=== PATIENT | male | born 1965 | race Caucasian/White ===

== ENCOUNTER 2019-03-20 20:32 | Emergency (ER) | payer BC ==
[2019-03-20 20:41] VITALS: BP 127/79
--- NOTE | 2019-03-20 20:57 | UC ---
Hand/Wrist HPI - HPI Summary HPI Summary: 53 yo male presents with LEFT arm injury. He tells me that this evening he was on a stool fixing an appliance, when he slipped and landed on his distal left upper arm. Did not hit his head or have LOC. Since that time he has had pain to the area, but has improved with ice and gentle ROM. He is right handed. He notes some decreased sensation along the C7 dermatome from elbow to mid forearm. - History Of Current Complaint Chief Complaint: UCUpperExtremity Stated Complaint: ARM INJURY Time Seen by Provider: 03/20/19 20:57 Hx Obtained From: Patient Onset/Duration: Sudden Onset Severity Initially: Moderate Severity Currently: Mild Pain Intensity: 4 Pain Scale Used: 0-10 Numeric - Allergies/Home Medications Allergies/Adverse Reactions: Allergies Allergy/AdvReac Type Severity Reaction Status Date / Time No Known Allergies Allergy Verified 03/20/19 20:41 PMH/Surg Hx/FS Hx/Imm Hx - Additional Past Medical History Additional PMH: None Other History Of: Anticoagulant Therapy - ASA 81mg po daily - Surgical History Surgical History: None - Family History Known Family History: Positive: Non-Contributory - Social History Occupation: Employed Full-time Lives: With Family Alcohol Use: Weekly Substance Use Type: None Smoking Status (MU): Former Smoker When Did the Patient Quit Smoking/Using Tobacco: 30 years ago Review of Systems All Other Systems Reviewed And Are Negative: No Constitutional: Positive: Negative Skin: Positive: Negative Respiratory: Positive: Negative Cardiovascular: Positive: Negative Neurovascular: Positive: Negative Musculoskeletal: Positive: Other: - Left arm injury Neurological: Positive: Negative Psychological: Positive: Negative Physical Exam - Summary Physical Exam Summary: GENERAL: NAD. WDWN. No pain distress. SKIN: No rashes, sores, lesions, or open wounds. CHEST: No accessory muscle use. Breathing comfortably and in no distress. CV: Pulses intact radial and ulnar. Cap refill <2seconds MSK: LEFT UPPER ARM: Mild TTP about anterolateral aspect of distal upper arm above elbow joint. FROM at left elbow. NTTP left elbow. 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 No edema or obvious bony deformities. NEURO: Alert. Sensations intact hand and all fingers. C4-T1 grossly intact, but notes some decreased sensation along the C7 dermatome from elbow to mid forearm - no pain here. PSYCH: Age appropriate behavior. Triage Information Reviewed: Yes Vital Signs: Initial Vital Signs Temp 98 F 03/20/19 20:36 Pulse 69 03/20/19 20:36 Resp 16 03/20/19 20:36 BP 127/79 03/20/19 20:36 Pulse Ox 97 03/20/19 20:36 Vital Signs Reviewed: Yes Diagnostics - Radiology Humerus and elbow XR Radiology Interpretation Completed By: ED Physician Summary of Radiographic Findings: No fx Hand/Wrist Course/Dx - Course Course Of Treatment: XR wet read negative. Suspect MSK and mild nerve contusion. Advised to rest, ice, and practice gentle range of motion of his elbow. May take tylenol/ibuprofen as directed for discomfort. - Differential Dx/Diagnosis Provider Diagnosis: Contusion of arm, left Discharge ED - Sign-Out/Discharge Documenting (check all that apply): Patient Departure All imaging exams completed and their final reports reviewed: No - Discharge Plan Condition: Stable Disposition: HOME Patient Education Materials: Contusion in Adults (ED) Referrals: Ernesto Santiago MD [Primary Care Provider] - Additional Instructions: If you develop a fever, shortness of breath, chest pain, new or worsening symptoms - please call your PCP or go to the ED immediately. 1) Rest, Ice, and elevate your arm to decrease pain and swelling 2) May take ibuprofen as directed for discomfort 3) Practice gentle range of motion exercises to keep your muscles loose - Billing Disposition and Condition Condition: STABLE Disposition: Home
== END 2019-03-20 21:11 | disposition home or self-care (01) ==
LOC: UCEAST 20:32
DX: S40.022A Contusion of left upper arm, initial encounter (principal); Z87.891 Personal history of nicotine dependence; W01.0XXA Fall on same level from slipping, tripping and stumbling without subsequent striking against object, initial encounter; Y93.89 Activity, other specified; Y92.9 Unspecified place or not applicable
CPT/HCPCS: 99201; G0463